=== PATIENT | male | born 1975 | race African-American/Black ===

== ENCOUNTER 2018-07-22 09:32 | Day surgery (SDC) | payer OTHER ==
[2018-07-18 15:20] VITALS: BMI 40.4
[~2018-07-22 09:32] MED LIST: LACTATED RINGERS 1,000 ML IV SCH; LIDOCAINE 1% 20 ML VIAL (10MG/ML) FOR IV START INTRADERMA PRN
[2018-07-22 10:08] VITALS: RESP 16; TEMP 97.1
[2018-07-22] MEDS ORDERED: LIDOCAINE 1% INJ 10MG/ML (20 ML MDV) ONE (10:08)
[2018-07-22] MEDS ORDERED: PROPOFOL 10 MG/ML 20 ML VIAL IV ONE (10:08)
--- NOTE | 2018-07-22 10:59 | P.PCN ---
Date of Procedure: 07/22/18 Procedure(s) Performed: Procedure: 1. Esophagogastroduodenoscopy and biopsy. 2. Total colonoscopy. Preoperative diagnosis: Blood in the stools. Postoperative diagnosis: 1. Small sliding hiatal hernia with no obvious esophagitis or complicated reflux disease. 2. Mild antral gastritis. 3. Multiple biopsies obtained from the duodenum, antrum and esophagus. 4. Colon exam essentially within normal limits with the only finding of low-grade internal hemorrhoids without bleeding at the time of this exam. Preparation: HalfLytely prep. Sedation: Was provided by anesthesia. Brief clinical history: The patient is a 42-year-old male who is scheduled for this evaluation because of finding of blood in his stools. The patient reported occasional instances where he notices blood following his bowel movements but denied any changes in bowel habits or caliber of stools or bloody bowel movements. No specific upper GI complaints or vomiting of blood. Procedure: With the patient on his left lateral decubitus position and after informed consent and adequate sedation, I passed the Olympus-GIF H190 video upper endoscope through the cricopharyngeus down the esophagus. GE junction was around 40 cm from the incisors and there was a small sliding hiatal hernia but no obvious esophagitis or complicated reflux disease. The endoscope was then passed into the stomach which was insufflated with air and inspected in detail including the retroflex view in the cardia. There was some mottling and erythema in the antrum but no ulcers or erosions. Pyloric channel did not show any ulcers. Duodenal bulb, post bulbar area and descending duodenum were essentially within normal limits. I obtained biopsies from the duodenum, antrum and esophagus then the endoscope was withdrawn and I proceeded to perform the colonoscopy. Perianal area did not show any fissures or fistulas. There were no masses felt on digital rectal examination. The Olympus CFH 190L video colonoscope was then inserted in the rectum in the usual fashion and advanced to the cecum. The mucosa appeared healthy. There was no obvious polyps or tumors or any obvious diverticular disease or bleeding. I retroflexed the endoscope in the rectum before the endoscope was withdrawn. Low-grade internal hemorrhoids were noted with no evidence of bleeding. The patient tolerated the procedure well. Plan: The patient was reassured. Discussed dietary measures and local care for hemorrhoids. He will follow-up with you as planned and further plans can be made based on his course and biopsy results.
[2018-07-22 11:13] VITALS: BP 110/67; PULSE 70
== END 2018-07-22 11:27 | disposition home or self-care (01) ==
LOC: ORWHC2ENDO 09:32
DX: K29.50 Unspecified chronic gastritis without bleeding (principal); K21.9 Gastro-esophageal reflux disease without esophagitis; K44.9 Diaphragmatic hernia without obstruction or gangrene; K64.8 Other hemorrhoids; I10 Essential (primary) hypertension; F17.200 Nicotine dependence, unspecified, uncomplicated; Z79.899 Other long term (current) drug therapy
CPT/HCPCS: 88305; 45378; 43239; J2001; J2704

== ENCOUNTER → 2019-03-14 | Outpatient (CLI) | payer OTHER ==
--- NOTE | 2019-03-15 16:21 | MR ---
EXAMINATION TYPE: MR foot LT wo con DATE OF EXAM: 03/14/2019 COMPARISON: None HISTORY: Pain in left foot / Strain Standard multiplanar, multisequence MRI departmental protocol Multiplanar, multisequence images of the left foot were acquired. FINDINGS: Metatarsals appear intact. The toes appear intact. I see no fracture nor dislocation. There is slight increased joint fluid at the MP joints. There is minor spurring at the first MP joint. I s ee no focal bone destruction. There is no evidence of a soft tissue mass. The plantar fascia appears intact. The visualized tarsal bones appear intact. Talus and calcaneus are not entirely included on t he exam. Ankle mortise is anatomic. There is mild subcutaneous edema of the forefoot. This is seen at the level of the mid metatarsals an d extending into the toes. There is very slight increased signal in the plantar soft tissues at the first metatarsal on the T2 c oronal images. IMPRESSION: Slight increased fluid at the MP joints could relate to some mild nonspecific synovitis. No fracture seen. No evidence of ligament or tendon tear. Subcutaneous edema over the forefoot and minimal soft tissue edema at the plantar aspect of the first metatarsal.
== END | disposition home or self-care (01) ==
LOC: RADMRIMAIN 18:12
PROVIDERS: ATTEND Orthopaedic Surgery
DX: S96.812A Strain of other specified muscles and tendons at ankle and foot level, left foot, initial encounter (principal)

== ENCOUNTER → 2019-12-03 | Outpatient (CLI) | payer OTHER ==
--- NOTE | 2019-12-03 13:21 | EST ---
EXERCISE STRESS AGE: 44 SEX: M HT: 5'8" WT: 290 lbs. PROTOCOL: Blayne STAGE: 2 DURATION OF EXERCISE: 6.0 HEART RATE REST: 87 BLOOD PRESSURE REST: 120/76 MAXIMUM HEART RATE ACHIEVED: 125 MAXIMUM BLOOD PRESSURE: 128/65 85% MPHR: 150 100% MPHR: 177 METS: 6.0 INDICATIONS: Shortness of breath. CLINICAL INFORMATION: Shortness of breath on exertion referred for a stress test. Baseline heart rate 87 beats per minute. Baseline blood pressure 120/76 mmHg. Baseline 12-lead ECG shows normal sinus rhythm with normal cardiac intervals. Patient exercised on a Blayne protocol for 4 minutes 19 seconds. He became short of breath and stated he could not go any further. During this time, there was no ECG evidence for ischemia. No arrhythmias were noted. Normal heart rate and blood pressure response. Peak heart rate 126 beats per minute. IMPRESSION: Poor exercise capacity on a Blayne protocol. Patient complained of shortness of breath and asked to stop the test just around 4 minutes. At this workload level no ECG evidence for ischemia noted. MMODL / IJN: [id number] /
== END | disposition home or self-care (01) ==
LOC: RADNMMAIN 11:02
PROVIDERS: ATTEND Family Medicine
DX: R06.02 Shortness of breath (principal); Z88.8 Allergy status to other drugs, medicaments and biological substances
CPT/HCPCS: 93017

== ENCOUNTER → 2020-02-12 | Outpatient (CLI) | payer OTHER | END | disposition home or self-care (01) | LOC: LABWHC1 14:40 | PROVIDERS: ATTEND Family Medicine | DX: Z20.828 Contact with and (suspected) exposure to other viral communicable diseases (principal) | CPT/HCPCS: U0003; C9803 ==